=== PATIENT | male | born 1990 | race Caucasian/White ===

== ENCOUNTER 2024-10-03 10:20 | Emergency (ER) | payer MEDICAID ==
[~2024-10-03] VITALS: Ht 167.6 cm; Wt 155.0 kg
[2024-10-03 10:24] VITALS: BP 123/87; TEMP 98.3
[2024-10-03] MEDS ORDERED: ALBU18HF12 IH (10:26)
[2024-10-03 10:44] LABS: COVID AG,FIA SOURCE NASAL SWAB
[2024-10-03 10:55] LABS: RAPID GROUP A STREP NEGATIVE (NEGATIVE)
[2024-10-03 11:00] VITALS: PULSE 88; RESP 16; O2SAT 99
[2024-10-03 11:03] LABS: INFLUENZA TYPE A NEGATIVE FOR TYPE A (NEGATIVE); INFLUENZA TYPE B NEGATIVE FOR TYPE B (NEGATIVE); SARS-COV2 (COVID) ANTIGEN,FIA Negative (Negative)
[2024-10-03] MEDS: ALBUTEROL SULFATE HFA 90 MCG/PUFF 8 GM INHALER IH ONE (11:11)
[2024-10-03] MEDS: DEXAMETHASONE 4 MG TABLET PO ONE (11:12)
[2024-10-03] MEDS: IBUPROFEN 400 MG TABLET PO ONE (11:13)
[2024-10-03] MEDS: ACETAMINOPHEN 500 MG TABLET PO ONE (11:13)
== END 2024-10-03 11:19 | disposition home or self-care (01) ==
LOC: EMS 10:26
DX: J02.8 Acute pharyngitis due to other specified organisms (principal); Z76.0 Encounter for issue of repeat prescription; B97.89 Other viral agents as the cause of diseases classified elsewhere; J45.909 Unspecified asthma, uncomplicated; Z20.822 Contact with and (suspected) exposure to COVID-19
CPT/HCPCS: 99284; 87426; 87430; 87804; 94640; J8540; J3535